=== PATIENT | female | born 1955 | race Caucasian/White ===

== ENCOUNTER 2023-03-27 15:04 | Emergency (ER) | payer MEDICARE, BC ==
[~2023-03-27] VITALS: Ht 162.6 cm; Wt 71.7 kg
[2023-03-27] MEDS ORDERED: IBUPROFEN 400 MG TABLET ONE (16:47)
[2023-03-27] MEDS ORDERED: ACETAMINOPHEN ES 500 MG TABLET PO ONE (17:00)
[2023-03-27] MEDS ORDERED: IBUPROFEN 400 MG TABLET PO ONE (17:00)
[2023-03-27 17:26] VITALS: BP 120/76; TEMP 98.4; O2SAT 98
== END 2023-03-27 17:27 | disposition home or self-care (01) ==
LOC: ER 15:09
DX: R51.9 Headache, unspecified (principal); M54.2 Cervicalgia; I10 Essential (primary) hypertension; V89.2XXA Person injured in unspecified motor-vehicle accident, traffic, initial encounter; Y93.89 Activity, other specified; Y92.89 Other specified places as the place of occurrence of the external cause; Y99.8 Other external cause status
CPT/HCPCS: 70450-TC; 71045-TC; 72125-TC